=== PATIENT | male | born 1995 | race Caucasian/White ===

== ENCOUNTER 2018-12-12 20:31 | Emergency (ER) | payer OTHER ==
[~2018-12-12] VITALS: Ht 177.8 cm; Wt 69.3 kg
--- NOTE | 2018-12-12 20:40 | NUR ---
NO NEURO DEFICITS. REPORTS YAN SIMILIAR TO MIGRAINES HE HAS HAD BEFORE.
[2018-12-12] MEDS ORDERED: PROCHLORPERAZINE 5 MG/ML, 2ML ONE (21:19)
[2018-12-12] MEDS ORDERED: DIPHENHYDRAMINE 50 MG/ML, 1ML ONE (21:19)
[2018-12-12] MEDS ORDERED: KETOROLAC 60 MG/2 ML ONE (21:20)
[2018-12-12] MEDS ORDERED: DIPHENHYDRAMINE 50 MG/ML, 1ML IVPush ONE (21:30)
[2018-12-12] MEDS ORDERED: SODIUM CHLORIDE 0.9% 1,000ML IVBOLUS ONE (21:30)
[2018-12-12] MEDS ORDERED: SODIUM CHLORIDE FLUSH 10ML SYR IVF ONE (21:30)
[2018-12-12] MEDS ORDERED: KETOROLAC 60 MG/2 ML IVPush ONE (21:30)
[2018-12-12] MEDS ORDERED: PROCHLORPERAZINE 5 MG/ML, 2ML IVPush ONE (21:30)
--- NOTE | 2018-12-12 21:32 | NUR ---
MEDICATED PER EMAR UPDATED ON ESTIMATED POC
--- NOTE | 2018-12-12 21:57 | NUR ---
WITH RE-ASSESSMENT PATIENT REPORTS YAN COMPLETELY IMPROVED (07/12). AMBULATING/TAKING WATER/TOLERATING BRIGHT LIGHTS. PROVIDER MADE AWARE.
[2018-12-12 22:20] VITALS: BP 134/68
== END 2018-12-12 22:28 | disposition home or self-care (01) ==
LOC: ED 22:01
DX: G43.909 Migraine, unspecified, not intractable, without status migrainosus (principal); R11.2 Nausea with vomiting, unspecified; F17.210 Nicotine dependence, cigarettes, uncomplicated
CPT/HCPCS: 96374; 96375; 99283; J0780; J1200; J1885; J7030